=== PATIENT | female | born 1950 | race Caucasian/White ===

== ENCOUNTER → 2016-09-05 | Outpatient (CLI) | payer BC | LOC: KOH-I 15:45 | DX: R60.0 Localized edema (principal) | CPT/HCPCS: 93971 ==

== ENCOUNTER → 2016-10-21 | Outpatient (CLI) | payer BC | LOC: KOH-I 08:38 | DX: M13.861 Other specified arthritis, right knee (principal); E53.9 Vitamin B deficiency, unspecified; E55.9 Vitamin D deficiency, unspecified; E78.2 Mixed hyperlipidemia; E87.6 Hypokalemia; G89.4 Chronic pain syndrome; I10 Essential (primary) hypertension; M13.851 Other specified arthritis, right hip; M13.852 Other specified arthritis, left hip; M15.8 Other polyosteoarthritis; M51.36 Other intervertebral disc degeneration, lumbar region; M54.16 Radiculopathy, lumbar region; M54.5 Low back pain; R60.0 Localized edema; Z68.27 Body mass index [BMI] 27.0-27.9, adult | CPT/HCPCS: 73564 ==

== ENCOUNTER → 2020-07-30 | Outpatient (CLI) | payer OTHER ==
[~2020-07-30] MED LIST: ANAPROX PO; ATENOLOL50 MG PO; CYMBALTA60 MG PO; FENOFIBRATE54 MG PO; HYDROCHLOROTHIA50 MG PO; MELATONIN3 MG PO; MOBIC15 MG PO; ZOCOR20 MG PO
[2020-07-30 12:38] LABS: HEMOGLOBIN 14.3 gm/dl (12.3-15.3); RED BLOOD COUNT 4.57 M/UL (4.00-5.10); WHITE BLOOD COUNT 9.4 K/UL (4.5-11.0)
[2020-07-30 13:04] LABS: BUN/CREATININE RATIO 21 (0-10)
== END ==
LOC: OPSV2 11:25
PROVIDERS: Anesthesiology; Obstetrics & Gynecology
DX: Z01.818 Encounter for other preprocedural examination (principal); N95.0 Postmenopausal bleeding
CPT/HCPCS: 36415; 71046; 80048; 81001; 85025; 93005

== ENCOUNTER → 2020-08-10 | Day surgery (SDC) | payer OTHER | END | disposition home or self-care (01) | LOC: OR 07:41 | DX: N84.0 Polyp of corpus uteri (principal); E78.5 Hyperlipidemia, unspecified; I10 Essential (primary) hypertension; M19.90 Unspecified osteoarthritis, unspecified site; Z82.49 Family history of ischemic heart disease and other diseases of the circulatory system; Z80.0 Family history of malignant neoplasm of digestive organs; Z79.899 Other long term (current) drug therapy | CPT/HCPCS: J1100; J1885; J2001; J2405; J2704; J3010; J7120 ==